=== PATIENT | male | born 1965 | race Two or more races ===

== ENCOUNTER 2024-05-13 09:59 | Day surgery (SDC) | payer BC, SELFPAY ==
[2024-05-11 15:11] VITALS: BMI 27.1
[2024-05-13 10:29] VITALS: BP 133/77; PULSE 58; RESP 18; TEMP 36.6; O2SAT 99
--- NOTE | 2024-05-13 11:50 | P.PNANES_ITS ---
[facility] Disclaimer: The information contained in this section may have been updated after the patient was seen, as this information can be updated by other users. Medical History No significant past medical history Surgical History History of lobectomy of lung History of back surgery Family History Other Colon cancer Family history of hypertension Family history of myocardial infarction Prostate cancer Social History Smoking Status: Never smoker alcohol intake: never substance use type: denies use current occupational status: employed Travel in the last 8 weeks: None caffeine: Yes [facility] Anesthesia Checklist Patient Identification Patient Identification: Arm Band and Family Structural Data Admitted From: Home Planned Operative Procedure/s: colonoscopy Consent for Planned Operative Procedure(s) Verified: Yes Verified Documents: Surgical Consent and History and Physical NPO Status Verified Time NPO: 00:00 Additional verifications Patient : No Anesthesia Reactions: No Hx Blood Transfusions: No Blood Transfusion Reaction: No Cephalosporin Allergy: No Previous Colonoscopy: No Airway Assessment Mallampati Score:: Class II C-Spine Mobility Assessed: Yes TMJ Mobility Assessed: Yes Dentition: Good Dentition Neurological Assessment Level of Consciousness: Awake, Alert, Appropriate and Follows Commands Hx Seizures: No Numbness or tingling in extremities: No Anesthesia Plan Anesthesia Risk discussed: Yes ASA Class: II Anesthesia Type: MAC
--- NOTE | 2024-05-13 11:53 | EXP.HP ---
History of Present Illness *Admission Date: 05/13/24 *Reason for visit:: Screening/family history *History of present illness: Mr. Tee is a 59-year-old gentleman who is here for initial screening colonoscopy. The patient's father had colon cancer in his late 50s. The examination is deemed medically necessary for screening colonoscopy. The patient has been seen, interviewed and examined prior to the procedure by both myself and the anesthesia provider. [facility] Disclaimer: The information contained in this section may have been updated after the patient was seen, as this information can be updated by other users. Medical History (Updated 05/13/24 @ 11:54 by Ori Bustillos II, MD) No significant past medical history Surgical History History of lobectomy of lung History of back surgery Family History Other Colon cancer Family history of hypertension Family history of myocardial infarction Prostate cancer Social History (Updated 05/13/24 @ 11:52 by Joaquin Heath CRNA) Smoking Status: Never smoker alcohol intake: never substance use type: denies use current occupational status: employed Travel in the last 8 weeks: None caffeine: Yes Have you lived/traveled outside [place] in past 30 days?: No Contact w/someone who lives/traveled outside [place] past 30 days?: No Exposure to someone with infectious disease in past 14 days?: No Do you have a fever (greater than 100.4 F or 38 C)?: No Have you tested positive for COVID-19: No Exposed to someone with COVID-19 in past 14 days?: No Do you have a sore throat?: No Do you have a cough?: No Do you have any weakness?: No Are you experiencing any nausea/vomitting?: No Do you have any diarrhea?: No Are you experiencing any unusual bleeding?: No Do you have any muscle aches/pain?: No Do you have any abdominal pain?: No Are you experiencing loss of taste or smell?: No Review of Systems Review of Systems Review of systems (narrative): Negative *Cardiovascular Comments: Negative *Gastrointestinal Comments: Negative *Genitourinary Comments: Negative *Musculoskeletal Comments: Negative *Neurologic Comments: Negative Meds Home Medications and Allergies Home Medications ?Medication ?Instructions ?Recorded ?Confirmed ?Type sodium,potassium,mag sulfates 17.5 See Rx Instructions PO .COMPLEX 04/30/24 05/11/24 Rx gram-3.13 gram-1.6 gram oral soln #354 mL (Suprep Bowel Prep Kit) New Prescriptions to Start Prescriptions: Allergies Allergy/AdvReac Type Severity Reaction Status Date / Time No Known Allergies Allergy Verified 05/11/24 15:07 Exam Data for Last 24 hours Vital signs and Labs for Last 24 Hours: Temp Pulse Resp BP Pulse Ox O2 Del Method 97.9 F 58 L 18 133/77 99 Room Air 05/13/24 10:29 05/13/24 10:29 05/13/24 10:29 05/13/24 10:29 05/13/24 10:29 05/13/24 10:29 I & O for Last 24 hours: Intake & Output 05/10/24 05/11/24 05/12/24 05/13/24 23:59 23:59 23:59 23:59 Weight 200 lb *Routine HEENT Exam Head: Present normocephalic Eye: Present EOMI and PERRL ENT: Present mucous membranes moist *Routine Neck Exam Neck: Present supple *Routine Respiratory Exam Respiratory: Present CTA bilaterally *Routine Cardiovascular Exam Cardiovascular: Present RRR *Routine Abdominal Exam Abdominal: Present soft and normoactive bowel sounds; Absent tenderness *Routine Rectal Exam Rectal:: deferred *Routine Genitalia Exam Genitalia:: deferred *Routine Extremities Exam Extremities: Absent cyanosis, clubbing or edema *Routine Skin Exam Skin: Present warm; Absent rash *Routine Neurological Exam Neurological: Present alert and oriented X3 Assessment and Plan *Assessment and plan (1) Screening for colon cancer: Status: Acute Category: Medical Code(s): Z12.11 - Encounter for screening for malignant neoplasm of colon Plan A/P: 1. Screening for colon cancer and family history is the preprocedural diagnosis. The patient will be anesthetized/sedated using MAC sedation. The patient has been seen and examined. Cardiac and lung assessment prior to the examination is stable. Proceed with planned screening colonoscopy
--- NOTE | 2024-05-13 12:07 | HMH.PROCNOTE ---
[facility] Procedure Note Date: 05/13/24 Time: 12:22 Procedure Note:: Colonoscopy Procedure Report: Colonoscopy with cold snare polypectomy Endoscopist: Ori Bustillos II, MD Referring physician: Matheus Gan MD Date of Procedure: May 13, 2024 Equipment: Olympus 190 variable stiffness pediatric colonoscope Sedation: MAC sedation Indication: Mr. Tee is a 59-year-old gentleman who is here for initial screening colonoscopy. He reports no abdominal pain, weight loss, change in his bowel habits or rectal bleeding. He does state that his father had colon cancer in his late 50s. Procedure: Prior to the procedure, a history and physical exam was performed, and patient's medications and allergies were reviewed. The risks, benefits and alternatives of the sedation and procedure were discussed with the patient. All questions were answered and informed consent was obtained. The patient was brought to the procedure room. Patient identification and proposed procedure were verified by the physician and the nurse. The patient was placed in a left lateral decubitus position and the scope was passed under direct vision. Throughout the procedure, the patient's blood pressure, pulse, and oxygen saturations were monitored continuously. The colonoscopy was accomplished without difficulty. The patient tolerated the procedure well. Findings: On digital rectal examination there was normal rectal tone. There were no external hemorrhoids. The prostate was 2+, smooth, soft, symmetric without nodules. The colonoscope was introduced through the anal canal to the rectum and advanced to the cecum. The ileocecal valve and appendiceal orifice were identified. The scope was advanced a short distance into the ileum which appeared grossly normal. The scope was then withdrawn into the colon. There were 3 polyps (transverse x 1 (4 mm), descending x 1 (4 mm) and rectum x 1 (3 mm)). These were all removed via cold snare polypectomy. The remaining cecum, ascending and transverse colon and mucosa were grossly normal. There were scattered diverticuli throughout the descending and sigmoid colon (LEFT colon). The rectum itself was normal. Upon retroflexion within the rectum there were grade 2 internal hemorrhoids. The preparation was excellent throughout with [place] Preparation Score of 9. The cecal time was 12 minutes. Impression: 1. Diminutive colonic polyps x 3 2. Left-sided diverticulosis 3. Grade 2 internal hemorrhoids Plan: I will follow-up the polyp histology and based upon the patient's family history and polyp pathology, I would recommend repeat surveillance colonoscopy again in 5 years. I would encourage psyllium bulking fiber supplementation on a maintenance basis.
[2024-05-13 12:08] VITALS: O2SAT 99
[2024-05-13 12:28] VITALS: BP 92/65; PULSE 70; RESP 18; TEMP 36.2; O2SAT 93
[2024-05-13 12:38] VITALS: BP 97/66; PULSE 58; RESP 18; O2SAT 92
[2024-05-13 12:48] VITALS: BP 100/69; PULSE 55; RESP 18; O2SAT 97
[2024-05-13 13:17] VITALS: BP 106/64; PULSE 60; RESP 18; O2SAT 97
== END 2024-05-13 13:17 | disposition home or self-care (01) ==
PROVIDERS: PCP Psychiatry & Neurology Sleep Medicine; Visit Provider Internal Medicine Gastroenterology
PROC: 0DJD8ZZ Inspection of Lower Intestinal Tract, Via Natural or Artificial Opening Endoscopic (ICD-10-PCS; CPT 45378; principal; 2024-05-13 11:30)
DX: K63.5 Polyp of colon (principal); K57.30 Diverticulosis of large intestine without perforation or abscess without bleeding; K64.1 Second degree hemorrhoids; Z12.11 Encounter for screening for malignant neoplasm of colon; Z80.0 Family history of malignant neoplasm of digestive organs
CPT/HCPCS: 45385; J2704